=== PATIENT | female | born 1980 | race Caucasian/White ===

== ENCOUNTER → 2017-12-15 | Outpatient (CLI) | payer BC ==
--- NOTE | 2017-12-15 14:46 | RAD ---
Sonography of the upper left arm Clinical indications: 2 lumps including the upper left arm and left antecubital area/proximal forearm. FINDINGS: Sonography of the upper left arm in the region of palpable lump as indicated by the patient was performed. There is a small subcutaneous mildly heterogeneous isoechoic and hypoechoic solid nodule measuring 7 mm x 5 mm x 2 mm in size. This may represent a lipoma. Sonography of the left antecubital fossa and proximal left forearm in the area of palpable lump as indicated by the patient was performed. No focal sonographic abnormality is seen here. IMPRESSION: Palpable lump of the upper left arm corresponds to a 7 mm solid nodule. This may represent a small lipoma. Recommend continued clinical follow-up with regard to any growth in size. No focal sonographic abnormality is seen in the area of the lump of the left antecubital fossa/proximal left forearm. If there is a persistent clinical concern in this area, then noncontrast MRI study may be helpful for further evaluation. Electronically signed by: Nikhil Prater MD (12/15/2017 2:42 PM) [id number]
== END | disposition home or self-care (01) ==
LOC: US 08:13
PROVIDERS: ATTEND Family Medicine
DX: M54.2 Cervicalgia (principal); M25.511 Pain in right shoulder; R20.8 Other disturbances of skin sensation; R22.32 Localized swelling, mass and lump, left upper limb
CPT/HCPCS: 76881

== ENCOUNTER → 2020-06-30 | Outpatient (CLI) | payer OTHER ==
--- NOTE | 2020-06-30 12:27 | RAD ---
Examination: Ultrasound pelvis HISTORY: History of pelvic pain, dysfunctional uterine bleeding COMPARISON: None available. FINDINGS: The uterus measures 10.1 x 5.4 x 5.9 cm. There is a 3.7 cm echogenicity identified in the uterus probably a fibroid. Endometrium measures 1.3 cm in thickness. The right ovary measures 4.9 x 3.8 x 2.7 cm. The left ovary measures 3.5 x 2.8 x 1.2 cm. Blood flow identified in the right and left ovaries. There is a 3.1 cm follicle identified in the right ovary. IMPRESSION: 1. 3.7 cm fibroid identified in the anterior wall of the uterus. 2. 3.1 cm follicle right ovary. Electronically signed by: Toy Perez MD (06/30/2020 12:24 PM) [id number]
== END ==
LOC: US 10:50
PROVIDERS: ATTEND Obstetrics & Gynecology
DX: N83.01 Follicular cyst of right ovary (principal); D25.9 Leiomyoma of uterus, unspecified
CPT/HCPCS: 76856

== ENCOUNTER 2021-01-11 23:18 | Emergency (ER) | payer OTHER ==
[~2021-01-11] VITALS: Ht 167.6 cm; Wt 90.9 kg
[2021-01-12 00:26] LABS: CLARITY,URINE CLEAR; COLOR,URINE YELLOW; GLUCOSE,URINE >=1000 mg/dL (NEG)
[2021-01-12 00:27] LABS: BACTERIA,URINE 0 /HPF (0-FEW); BILIRUBIN,URINE SMALL (NEG); NITRITE,URINE NEG (NEG); SQUAMOUS EPITHELIAL CELL,UR MOD /LPF; WBC,URINE 0 /HPF (0-4)
[2021-01-12 00:28] LABS: U PREG PATIENT NEGATIVE (NEG)
[2021-01-12] MEDS ORDERED: HYDROcodone/APAP 5/325MG 1 TAB TABLET PO ONE ×2 (00:30→03:00)
--- NOTE | 2021-01-12 00:47 | PHYS DOC ---
Past History Past Medical History: No Pertinent History, Other Past Surgical History: No Surgical History, Other Alcohol Use: None Adult General Chief Complaint Chief Complaint: OTHER COMPLAINTS HPI HPI Patient is a 40-year-old female who presents with right vaginal/labial pain for 4 days. States she has had this before, and it ended up being an abscess that needed to be drained. States that she is having some pain, 8 out of 10, sharp in nature with no radiation. Denies any fevers, chest pain, shortness of breath, abdominal pain, nausea, vomiting. States she had not called her primary care physician because she thought it may just go away. Review of Systems Review of Systems Review of systems otherwise unremarkable except noted in HPI Current Medications Current Medications Current Medications Medications (Trade) Dose Ordered Sig/Cb Start Time Stop Time Status Last Admin Dose Admin Acetaminophen/ Hydrocodone Bitart (Lortab 5/325) 2 tab 1X ONCE 01/12/21 00:30 01/12/21 00:31 DC 01/11/21 23:58 2 TAB Allergies Allergies Allergies Coded Allergies Type Severity Reaction Last Updated Verified No Known Drug Allergies 01/11/21 No Physical Exam Physical Exam Constitutional: Well developed, well nourished, no acute distress, non-toxic appearance. [] HENT: Normocephalic, atraumatic, Neck: Normal range of motion, no tenderness, supple, no stridor. [] Cardiovascular:Heart rate regular rhythm, no murmur [] Lungs & Thorax: Bilateral breath sounds clear to auscultation [] Abdomen: soft, no tenderness, no masses, no pulsatile masses. : Patient has significant erythema, warmth and swelling throughout the right labia with some fluctuance suggestive of cysts/abscess, Bartholin's cyst/abscess [] Skin: Warm, dry, no erythema, no rash. [] Extremities: No tenderness, no cyanosis, no clubbing, ROM intact, no edema. [] Neurologic: Alert and oriented X 3, normal motor function, normal sensory function, no focal deficits noted. [] Psychologic: Affect normal, judgement normal, mood normal. [] Current Patient Data Vital Signs Vital Signs Date Time Temp Pulse Resp B/P (MAP) Pulse Ox O2 Delivery O2 Flow Rate FiO2 01/11/21 23:58 18 97 Room Air 01/11/21 23:34 98.4 107 143/71 (95) Lab Results Laboratory Tests Test 01/11/21 23:52 Urine Collection Type Unknown Urine Color Yellow Urine Clarity Clear Urine pH 6.0 Urine Specific [place] >=1.030 Urine Protein 30 mg/dl (NEG-TRACE) Urine Glucose (UA) >=1000 mg/dL (NEG) Urine Ketones (Stick) 15 mg/dL (NEG) Urine Blood Mod (NEG) Urine Nitrite Neg (NEG) Urine Bilirubin Small (NEG) Urine Urobilinogen Dipstick 1.0 mg/dL (0.2 mg/dL) Urine Leukocyte Esterase Neg (NEG) Urine RBC 6-10 /HPF (0-2) Urine WBC 0 /HPF (0-4) Urine Squamous Epithelial Cells Mod /LPF Urine Bacteria 0 /HPF (0-FEW) EKG EKG [] Radiology/Procedures Radiology/Procedures Patient with marked lines abscess on right labia. Cleaned area with sterile water then iodine. Placed topical lidocaine for anesthesia and left 30 minutes. Used a #10 blade scalpel to make a single stab incision in the labia. Approximately 10 mils of purulent fluid expressed. Wound packed. Cleaned wound and surrounding area again with sterile water. Bandaged. Patient tolerated procedure well. CT PELVIS WO History: Reason: labial / groin abscess cellulitis, RIGHT SIDE / Spl. Instructions: / History: Comparison: None. Technique: Noncontrast CT imaging was performed of the pelvis. Coronal and sagittal reconstructions were performed. Exposure: One or more of the following individualized dose reduction techniques were utilized for this examination: 1. Automated exposure control 2. Adjustment of the mA and/or kV according to patient size 3. Use of iterative reconstruction technique. Findings: Inflammatory changes within the inguinal region involving the bilateral labia, right greater than left. Heterogeneous collection within the right labia measures 2.6 x 1.9 cm. Evaluation is degraded without intravenous contrast. Mildly prominent inguinal lymph nodes, likely reactive. Right ovarian cyst measures 3.3 x 2.5 cm. Left anterior uterine lesion, likely fibroid. Impression: 1. Right labial heterogeneous collection with adjacent inflammatory changes, may represent early abscess or phlegmon. Recommend follow-up. 2. Right ovarian cyst. Electronically signed by: Ivan Cedeno DO (01/12/2021 2:12 AM) [id number] Heart Score C/O Chest Pain: No Risk Factors: Risk Factors: DM, Current or recent (<one month) smoker, HTN, HLP, family history of CAD, obesity. Risk Scores: Risk Factors: DM, Current or recent (<one month) smoker, HTN, HLP, family history of CAD, obesity. Course & Med Decision Making Course & Med Decision Making Patient is a 40-year-old female who presents with right groin pain for about 4 to 5 days, with exam suggestive of Bartholin's abscess/cyst Vital signs not concerning. Physical exam noted above. Patient given pain medication and started on antibiotics in preparation for incision and drainage. Gave additional dose of fentanyl for anxiolysis and pain control before procedure. Incision and drainage performed. Significant purulent fluid expressed. Packed and bandaged. CT of the pelvis notable for right labial heterogenous collection representing probable abscess. Discussed pain management at home and given pain prescription for home. Gave instructions on wound care. Advised to follow-up today with primary care physician to set up a wound check follow-up in 3 to 5 days. Gave strict return precautions to the ED. Patient grateful, verbalized understanding and agreed with plan of discharge. Dragon Disclaimer Dragon Disclaimer This electronic medical record was generated, in whole or in part, using a voice recognition dictation system. Departure Departure: Impression: Primary Impression: Abscess Disposition: 01 HOME / SELF CARE / HOMELESS Condition: GOOD Referrals: JESSENIA SESAY MD (PCP) Patient Instructions: Bartholin's Cyst or Abscess, Incision and Drainage Additional Instructions: Please read all the attached information very carefully. Please take your antibiotics as prescribed. Please take your pain medicine as prescribed and also add ice and ibuprofen as discussed. Please keep the area clean and dry. Please wear loose clothing. Please expect a little drainage and possibly a little blood. You must follow-up with your primary care physician in 3 to 5 days for a wound check and packing removal. Please come back to the ED with new or concerning symptoms. Scripts Hydrocodone Bit/Acetaminophen (HYDROCODONE-APAP 5-325 ) 1 Each Tablet 1 TAB PO PRN Q6HRS PRN for groin pain for 3 Days, #12 TAB 0 Refills Prov: SAM GARCIA MD 01/12/21 Amoxicillin/Potassium Clav (AUGMENTIN 875-125 TABLET) 1 Each Tablet 1 TAB PO BID for cyst for 10 Days, #19 TAB 0 Refills Prov: SAM GARCIA MD 01/12/21 SAM GARCIA MD Jan 12, 2021 00:47
[2021-01-12] MEDS ORDERED: LIDOCAINE 2% TOPICAL JELLY 5GM TUBE. TP ONE (01:23)
[2021-01-12] MEDS ORDERED: AMOX1TAB61 PO (01:26)
[2021-01-12] MEDS ORDERED: HYDR-2155 PO (01:26)
[2021-01-12] MEDS ORDERED: LIDOCAINE 2% JELLY 6ML IN APPLICATOR. MM ONE (01:30)
[2021-01-12] MEDS ORDERED: AMOXICILLIN/K CLAV 875/125MG TABLET. PO ONE (01:30)
--- NOTE | 2021-01-12 02:15 | RAD ---
CT PELVIS WO History: Reason: labial / groin abscess cellulitis, RIGHT SIDE / Spl. Instructions: / History: Comparison: None. Technique: Noncontrast CT imaging was performed of the pelvis. Coronal and sagittal reconstructions w ere performed. Exposure: One or more of the following individualized dose reduction techniques were utilized for thi s examination: 1. Automated exposure control 2. Adjustment of the mA and/or kV according to patient size 3. Use of iterative reconstruction technique. Findings: Inflammatory changes within the inguinal region involving the bilateral labia, right greater than lef t. Heterogeneous collection within the right labia measures 2.6 x 1.9 cm. Evaluation is degraded with out intravenous contrast. Mildly prominent inguinal lymph nodes, likely reactive. Right ovarian cyst measures 3.3 x 2.5 cm. Left anterior uterine lesion, likely fibroid. Impression: 1. Right labial heterogeneous collection with adjacent inflammatory changes, may represent early abs cess or phlegmon. Recommend follow-up. 2. Right ovarian cyst. Electronically signed by: Ivan Cedeno DO (01/12/2021 2:12 AM) [facility]
[2021-01-12 02:39] VITALS: BP 142/66
== END 2021-01-12 02:43 | disposition home or self-care (01) ==
LOC: ER 23:18
DX: N76.4 Abscess of vulva (principal)
CPT/HCPCS: 56405; 72192; 81001; 81025; 96374; 99285; J3010